=== PATIENT | male | born 1975 | race Caucasian/White ===

== ENCOUNTER → 2020-06-09 | Outpatient (CLI) | payer OTHER ==
[~2020-06-09] MED LIST: KETO10TA2 PO
== END | disposition home or self-care (01) ==
LOC: MAMO-SONO 11:45
PROVIDERS: ATTEND Specialist
DX: N45.2 Orchitis (principal)

== ENCOUNTER 2023-04-04 18:51 | Emergency (ER) | payer OTHER ==
[~2023-04-04] VITALS: Ht 170.2 cm; Wt 102.1 kg
== END 2023-04-04 20:28 | disposition home or self-care (01) ==
LOC: ER 18:51
DX: L02.414 Cutaneous abscess of left upper limb (principal)